=== PATIENT | male | born 1965 | race Caucasian/White ===

== ENCOUNTER → 2017-10-31 | Outpatient (CLI) | payer BC ==
--- NOTE | 2017-10-31 16:12 | CONS ---
CONSULTATION REASON FOR CONSULTATION: Sleep apnea. 52-year-old male patient diagnosed having obstructive sleep apnea through [facility] approximately 8 years ago. His last CPAP machine was given to him in 2013 and currently the patient is using a Respironics CPAP unit which is set at a pressure of 11 cm of water. He has been very compliant and continues to benefit from the treatment. No snoring while on CPAP therapy. The patient has been sleeping more than 7 hours every night. He goes to bed around 10:00 p.m., wakes up 6:00 a.m. in the morning. No snoring. No apneas. No choking or gasping for air. No restlessness in lower extremities. No grinding. No anxiety or panic attacks. No heartburn, shortness of breath or chest pain at nighttime. PERTINENT PAST MEDICAL HISTORY: 1. Obstructive sleep apnea. Currently on a CPAP pressure of 11 cm of water. Based on the compliance data that it was on the CPAP machine the patient has been averaging around 7 hours and 42 minute of CPAP use every night and his CPAP use for more than 4 hours is 26/30. 2. Hypertension. PAST SURGICAL HISTORY: Negative. DRUG ALLERGIES: To PENICILLIN. OUTPATIENT MEDICATION: Include aspirin and lisinopril. SOCIAL HISTORY: The patient is a nonsmoker. No history of alcohol. No history of IV drugs. FAMILY HISTORY: Negative for sleep apnea. REVIEW OF SYSTEMS: 12-point review of system was done and positive findings are mentioned above in the history of present illness. No history of any memory problems. No problems concentration or attention span or irritability or depression or anxiety. No history of any claustrophobia. No sleepwalking or sleep talking. No sleep paralysis. No hallucinations. No cataplexy. No reported nasal polyps, nasal drainage or postnasal drip. No restlessness in lower extremities. No headaches. No respiratory difficulties. No bronchitis. No cough or sputum production. No angina. No epilepsy. PHYSICAL EXAMINATION: BP is 123/74, pulse 88, respirations 16, temperature 98, saturation 96% on room air. Weight is 229. Height 5 feet 8 inches and neck size 17-3/4 of an inch. GENERAL APPEARANCE: Calm and comfortable, in no acute distress. Head is atraumatic, normocephalic. NECK: Short, supple. Crowded posterior pharynx. Air is present. Mallampati class IV. LUNGS: Clear to auscultation. HEART: Sounds are regular. Normal S1, S2. No S3. No murmurs. ABDOMEN: Soft, nontender. No organomegaly. EXTREMITIES: No edema. No cyanosis or clubbing. NEUROLOGICALLY: The patient is alert and oriented x3. No focal neurological deficits. PSYCHIATRIC: The patient has no anxiety or depression. SKIN: Negative for any wounds or ulceration. IMPRESSION: 1. Symptomatic obstructive sleep apnea. The patient continues to receive successful CPAP therapy at a pressure of 11 cm of water. The patient using a nose mask. He has been averaging about 7 hours and 42 minutes of CPAP use every night on average. 2. Hypersomnia recovered while on CPAP therapy. 3. Obesity with a BMI of 34.8. 4. Hypertension. PLAN: 1. Continue CPAP therapy at same level of pressure. 2. Provide the patient a AirFit N20 nose mask. This will be a better mask fit and this was trialed out in the office today and the patient would like to be switched to this type of mask. 3. The patient is compliant. 4. The patient continues to benefit from treatment. Encourage weight loss and see me back in a year's time earlier if needed. No need for any adjustment on his CPAP pressure for the time being. All of the supplies will be ordered with through his DME. MMSUSANNA / IJN: [id number] /
== END | disposition home or self-care (01) ==
LOC: SLEEP 13:14
PROVIDERS: ATTEND Internal Medicine Critical Care Medicine
DX: G47.33 Obstructive sleep apnea (adult) (pediatric) (principal); I10 Essential (primary) hypertension; E66.9 Obesity, unspecified; Z88.0 Allergy status to penicillin; Z79.82 Long term (current) use of aspirin; Z79.899 Other long term (current) drug therapy; Z99.89 Dependence on other enabling machines and devices; Z68.34 Body mass index [BMI] 34.0-34.9, adult
CPT/HCPCS: 99211